=== PATIENT | female | born 1930 | race Caucasian/White ===

== ENCOUNTER 2016-11-23 07:38 | Emergency (ER) | payer MEDICARE ==
[2016-11-23 07:55] VITALS: BP 195/96
--- NOTE | 2016-11-23 08:41 | ED ---
Back Pain - HPI Summary HPI Summary: 86 Female presents accompanied by son with complaints of left lower lumbar back pain that began yesterday after doing chores. Patient states she had this similar pain about 2 months ago that she injured while attempting to run to the bathroom twisting the wrong way. She states the pain is in the same spot and feels the same. Complains of twisting and certain movements making the pain worse. She suffers from sciatica however, this pain is higher up and does not cause numbness/tingling. She denies saddle anesthesia, bladder/bowel incontinence and difficulty walking. She was unable to sleep last night due to the pain and being unable to become comfortable. She tried using a heating pad and her naproxen that she was prescribed for her last episode which gave her some relief. Pain is minimal when sitting still. Denies abdominal, urinary or genitalia symptoms. Pain does not radiate. Relieved by rest. Is able to bear weight. Denies cough, rash, bruising, swelling. Has not had any recent trauma but was doing chores and thinks she "tweeked" her previous injury back in August. States this pain is not as bad as in August. - History of Current Complaint Chief Complaint: UCBackPain Stated Complaint: BACK PAIN Time Seen by Provider: 11/23/16 08:28 Hx Obtained From: Patient, Family/[employer] - son Onset/Duration: Sudden Onset, Lasting Days Onset/Duration: Started Days Ago, Traumatic Timing: Intermittent Back Pain Location: Is Discrete @ - left lumbar around L1-L4 Severity Initially: Moderate Severity Currently: Moderate Pain Intensity: 8 Pain Scale Used: 0-10 Numeric Character: Sharp, Aching, Burning Aggravating Symptom(s): Movement, Lifting, Bending Alleviating Symptom(s): Rest, Heat, OTC Meds Associated Signs And Symptoms: Positive: Negative. Negative: Redness, Bruising , Fever, Weakness, Numbness, Tingling, Abdominal Pain, Bladder Incontinence, Bowel Incontinence, Pain with Weight Bearing Related History: Similar Episode Dx As - August 2016 - Risk Factors AAA Risk Factors: Hypertension TAD Risk Factors: Negative Cauda Equina Risk Factors: Negative Epidural Abscess Risk Factors: Negative - no risk factors - Allergies/Home Medications Allergies/Adverse Reactions: Allergies Allergy/AdvReac Type Severity Reaction Status Date / Time Penicillins Allergy Vomiting Verified 11/23/16 07:55 Home Medications: Home Medications Menthol (Topical Analgesic) [Biofreeze Roll-On] 4 % EX ONCE PRN 11/23/16 [ History Confirmed 11/23/16] PMH/Surg Hx/FS Hx/Imm Hx Endocrine/Hematology History: Reports: Hx Thyroid Disease Denies: Hx Diabetes Cardiovascular History: Reports: Hx Hypertension Respiratory History: Denies: Hx Chronic Obstructive Pulmonary Disease (COPD) History: Denies: Hx Kidney Infection, Hx Kidney Stones - Cancer History Hx Radiation Therapy: No - Surgical History Surgery Procedure, Year, and Place: elva. hysterectomy. breast surgery. thyroid tumor- benign. appy - Immunization History Immunizations Up to Date: Yes Infectious Disease History: No Infectious Disease History: Denies: Hx Clostridium Difficile, Hx Hepatitis, Hx Human Immunodeficiency Virus (HIV), Hx of Known/Suspected MRSA, Hx Shingles, Hx Tuberculosis, Hx Known/ Suspected VRE, Hx Known/Suspected VRSA, History Other Infectious Disease, Traveled Outside the [place] in Last 30 Days - Family History Known Family History: Positive: Hypertension - Social History Alcohol Use: None Substance Use Type: Reports: None Smoking Status (MU): Never Smoked Tobacco Review of Systems Constitutional: Negative Eyes: Negative ENT: Negative Cardiovascular: Negative Respiratory: Negative Gastrointestinal: Negative Genitourinary: Negative Positive: Arthralgia, Myalgia, Decreased ROM - left lumbar back Skin: Negative Neurological: Negative Psychological: Normal All Other Systems Reviewed And Are Negative: Yes Physical Exam Triage Information Reviewed: Yes Vital Signs On Initial Exam: Initial Vitals Temp Pulse Resp BP 98.3 F 65 20 195/96 11/23/16 07:48 11/23/16 07:48 11/23/16 07:48 11/23/16 07:48 BP was retaken- similar BP obtained. compared to previous visits and BP was just as high or higher. Patient has not yet taken her BP meds and is in pain/ anxious. Recommend follow up within the next week with pcp. Vital Signs Reviewed: Yes Appearance: Positive: Well-Appearing, Pain Distress - mild with movement, none when sitting at rest Skin: Positive: Warm, Skin Color Reflects Adequate Perfusion, Dry, Other - no rash noted, no bruising, edema, obvious deformity or erythema noted. no hematoma or signs of trauma Head/Face: Positive: Normal Head/Face Inspection Eyes: Positive: Normal, EOMI, JUAN MIGUEL, Conjunctiva Clear ENT: Positive: Normal ENT inspection, Hearing grossly normal, Pharynx normal Dental: Negative: Percussion Tenderness @ Neck: Positive: Supple, Nontender, No Lymphadenopathy Respiratory/Lung Sounds: Positive: Clear to Auscultation, Breath Sounds Present , Decreased Breath Sounds. Negative: Rales, Rhonchi, Wheezes Cardiovascular: Positive: Normal, RRR, Pulses are Symmetrical in both Upper and Lower Extremities Abdomen Description: Positive: Nontender, No Organomegaly, Soft. Negative: Bruit - no aduitory bruits, or pulsatile mass, CVA Tenderness (R), CVA Tenderness (L) - did not elicit pain, Distended, Guarding, Pulsatile Mass Bowel Sounds: Positive: Present Musculoskeletal: Positive: Normal, Limited @ - hurts upon twisting to the left and right and with bending. Strength intact 5/5 bilateral. does not elicit pain. has sciatica brace on left leg., Pain @ - on palpation of paraspinal muscles left lower lumbar around L1-L4. Patient jumps on palpation of muscle. No bony tenderness on palpation of cervical through lumbar region. No signs of obvious injury. skin and sensation intact., Other - sensation normal, strength of both lower extremities normal 5/5. able to walk, get up from chair and bear weight with minimal pain.. Negative: Interruption @, Edema Left, Edema Right Neurological: Positive: Normal, Sensory/Motor Intact, Alert, Oriented to Person Place, Time, CN Intact II-III, Reflexes Intact, NV Bundle Intact Distally, Normal Gait, Other Psychiatric: Positive: Normal, Affect/Mood Appropriate Diagnostics - Vital Signs Vital Signs Temp Pulse Resp BP 11/23/16 07:48 98.3 F 65 20 195/96 - Laboratory Lab Results: Lab Results 11/23/16 Range/Units 08:11 POC Urine Color Yellow POC Urine Clarity Clear POC Urine pH 7.5 (5-9) POC Ur Specif [place] 1.015 (1.010-1.030) POC Urine Protein Negative (Negative) POC Ur Glucose (UA) Negative (Negative) POC Urine Ketones Negative (Negative) POC Urine Blood Trace-lysed H (Negative) POC Urine Nitrite Negative (Negative) POC Urine Bilirubin Negative (Negative) POC Urine Urobilinogen 0.2 (Negative) POC U Leukocyte Esteras Negative (Negative) Lab Statement: Any lab studies that have been ordered have been reviewed, and results considered in the medical decision making process. Back Pain Course/Dx - Course Course Of Treatment: patient will follow up with pcp for BP. She did not want pain medication at this time due to not having ate this morning yet. U/A was obtained and unremarkable. due to PE findings and history and current complaint patient will be treated for a low back strain with naproxen, rest and heat. no trauma to suggest fracture, x-ray not appropriate at this time. denied muscle relaxers at this time. educated about kidney stones and AAA and the signs/ symptoms to watch out for. instructed to return, go to ED or pcp if pain persists or does not get better for further evaluation and work up. patient was in agreement with this plan. is aware of worsening signs and symptoms to watch out for. discussed with Dr Alcantar - Diagnoses Differential Diagnosis/HQI/PQRI: Positive: Aneurysm, Cauda Equina Syndrome, Epidural Abscess, Fracture, Herniated Disc, Strain, Sprain, Other - nephrolithiasis Provider Diagnoses: Low back strain - Provider Notifications Discussed Care of Patient With: Dr Alcantra Discharge - Discharge Plan Condition: Stable Disposition: HOME Prescriptions: Naproxen TAB* [Naprosyn 250 mg TAB*] 500 mg PO DAILY #30 tab Patient Education Materials: Low Back Strain (ED) Referrals: Issac Santana MD [Primary Care Provider] - Additional Instructions: Take prescribed medication as needed for pain twice daily. Take with food to avoid upset stomach. Rest your back and use pain as your guide. Try to no do activities that exacerbate your pain. You may want to try applying a heating pad to the area, 20 minutes on and 20 minutes off. Symptoms may take 5-7 days to improve. You can continue use of Biofreeze as needed if you have relief. Your blood pressure was high during your visit, recommend close follow up and to make an appointment with your primary care doctor this week. If you develop worsening symptoms such as numbness/tingling, increasing pain, unable to go to control going to the bathroom, urinary symptoms or new symptoms develop please seek medical attention immediately. If pain persists despite medication, please return or go the ER to rule out other etiologies.
== END 2016-11-23 09:03 | disposition home or self-care (01) ==
LOC: UCCORT 07:38
DX: S39.012A Strain of muscle, fascia and tendon of lower back, initial encounter (principal); X58.XXXA Exposure to other specified factors, initial encounter; Y93.89 Activity, other specified; Y92.9 Unspecified place or not applicable; I10 Essential (primary) hypertension; E07.9 Disorder of thyroid, unspecified; Z88.0 Allergy status to penicillin
CPT/HCPCS: 81003; 99212; G0463